=== PATIENT | male | born 1985 | race Caucasian/White ===

== ENCOUNTER 2017-01-02 17:42 | Emergency (ER) | payer OTHER ==
[~2017-01-02] VITALS: Ht 188 cm; Wt 112.0 kg
[~2017-01-02 17:42] MED LIST: AMOX875 PO; PRED20 PO
[2017-01-02 17:43] VITALS: BP 151/97; PULSE 86; RESP 15; TEMP 98.6; O2SAT 96
[2017-01-02] MEDS ORDERED: MAGICPED SWISH-SWAL (18:04)
--- NOTE | 2017-01-02 18:15 | PD ---
HPI Chief Complaint: Cold / Flu Symptoms Time Seen by Provider: 18:00 Travel History International Travel<30 days: No Contact w/Intl Traveler<30days: No Traveled to known affect area: No History of Present Illness HPI 31-year-old male presents to the emergency room for evaluation of nonproductive cough, slightly sore throat, and congestion for the past 3 days. Patient states his son and everyone else in his family is sick with similar symptoms. Sore throat is mild, worse when he is speaking. States it feels somewhat scratchy. He states he was concerned because of the duration of symptoms. He has been taking quzj-bsy-tyqwrnf DayQuil, NyQuil, and Sudafed. States he developed some most. He denies fever, chills, nausea, vomiting. PFSH Past Medical History Medical History: Denies Significant Hx Depression: Yes Diminished Hearing: No Seizures: Yes (HAD CHILD, NONE SINCE BEFORE PUBERTY) Tetanus Vaccination: < 5 Years Influenza Vaccination: No ?: Not Past Surgical History Surgical History: No Previous Surgery Social History Alcohol Use: No Tobacco Use: Yes (/2 PPD) Substance Use: No Allergies-Medications (Allergen,Severity, Reaction): Coded Allergies: No Known Allergies (Verified , 01/02/17) Reported Meds & Prescriptions Reported Meds & Active Scripts Active Magic Mouthwash Pediatric/Adult Liq (Lidocaine/Diphenhydr/Alum/Mg/Simeth) 60 Ml Susp 5 Ml SWISH-SWAL ACHS Each 5mL contains: Diphenydramine 4.5mg, Viscous Lidocaine 2% 10mg, Maalox Advanced Regular Strength 2.7ml Amoxicillin 875 Mg Tab 875 Mg PO BID Deltasone (Prednisone) 20 Mg Tab 20 Mg PO BID Review of Systems Except as stated in HPI: all other systems reviewed are Neg Physical Exam Narrative GENERAL: Well-nourished, well-developed male in no acute distress. Afebrile. Ambulatory. SKIN: Focused skin assessment warm/dry. HEAD: Normocephalic. EYES: No scleral icterus. No injection or drainage. ENT: Mucosa pink and moist. Moderate erythema without edema or exudates. No uvular edema. No uvular, palatal, or tonsillar deviation. Airway patent. Nasal turbinates appear normal without nasal blood, purulent drainage or septal hematoma. EARS: Bilateral pinnae and external canals appear within normal limits. Bilateral tympanic membranes without erythema, dullness or perforation. NECK: Supple, trachea midline. No JVD or lymphadenopathy. CARDIOVASCULAR: Regular rate and rhythm without murmurs, gallops, or rubs. RESPIRATORY: Breath sounds equal bilaterally. No accessory muscle use. No crackles, rales, wheezes, or rhonchi. Data Data Last Documented VS Vital Signs Date Time Temp Pulse Resp B/P Pulse Ox O2 Delivery O2 Flow Rate FiO2 01/02/17 17:43 98.6 86 15 151/97 96 MDM Medical Decision Making Medical Screen Exam Complete: Yes Emergency Medical Condition: Yes Medical Record Reviewed: Yes Differential Diagnosis URI versus streptococcal pharyngitis versus viral pharyngitis versus bronchitis Narrative Course 31-year-old male presents to the emergency room for evaluation of cough, congestion, sore throat for the past 3 days. Family has similar symptoms. He was concerned because of the duration of symptoms. Physical exam reveals mild to moderate erythema of the pharynx without edema or exudates. Bilateral ears are without evidence of infection. Lung sounds clear and equal. This is likely viral upper respiratory infection; I see no indication for antibiotics. Patient was told to continue ujqi-fvp-fzzzphc medications for symptoms. He was given Magic mouthwash for sore throat. Told to follow up with the primary care physician or return to the emergency room forcing symptoms. He understands and agrees to plan. Diagnosis Primary Impression: Upper respiratory infection Qualified Code: J00 - Acute nasopharyngitis Referrals: Primary Care Physician Patient Instructions: General Instructions, Upper Respiratory Infection (ED) Additional Instructions: Rest and drink plenty of fluids. Use Magic mouthwash as directed, as needed for sore throat. Take ibuprofen with food as directed, as needed for pain. Follow-up with a primary care physician. Return to the emergency room for worsening symptoms. Scripts Lwdeaioaojuhygd-Rxmhohgxs-Qfr-Alum-Simeth Liq (Magic Mouthwash Pediatric/Adult Liq)60 Ml Susp5 Ml SWISH-SWAL ACHS #60 ML Ref 0 Each 5mL contains: Diphenydramine 4.5mg, Viscous Lidocaine 2% 10mg, Maalox Advanced Regular Strength 2.7ml Prov:Jordan Main MD 01/02/17 Disposition: 01 DISCHARGE HOME Condition: Stable Evelina Wilkinson January 02, 2017 18:15
[2017-01-02 18:25] VITALS: BP 150/86; PULSE 88; RESP 20; O2SAT 96
== END 2017-01-02 18:40 | disposition home or self-care (01) ==
LOC: PHEFT 17:42
DX: J06.9 Acute upper respiratory infection, unspecified (principal); F32.9 Major depressive disorder, single episode, unspecified; F17.200 Nicotine dependence, unspecified, uncomplicated
CPT/HCPCS: 99283

== ENCOUNTER 2017-03-22 11:37 | Emergency (ER) | payer OTHER ==
[~2017-03-22 11:37] MED LIST changes: +MAGICPED SWISH-SWAL
[2017-03-22 11:41] VITALS: BP 166/81; PULSE 92; RESP 18; TEMP 98.3; O2SAT 95
[2017-03-22] MEDS ORDERED: VARE1 PO (11:43)
[2017-03-22] MEDS ORDERED: ORPH100T99 PO (11:56)
[2017-03-22] MEDS ORDERED: IBUP-232 PO (11:56)
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
[2017-03-22] MEDS ORDERED: IBUPROFEN 200 MG TAB PO ONE (12:00)
== END 2017-03-22 12:17 | disposition home or self-care (01) ==
LOC: PHED 11:37
DX: S16.1XXA Strain of muscle, fascia and tendon at neck level, initial encounter (principal); M25.512 Pain in left shoulder; F17.200 Nicotine dependence, unspecified, uncomplicated; Z86.59 Personal history of other mental and behavioral disorders; V89.2XXA Person injured in unspecified motor-vehicle accident, traffic, initial encounter
CPT/HCPCS: 99283

== ENCOUNTER 2017-04-30 16:02 | Emergency (ER) | payer SELFPAY ==
[~2017-04-30] VITALS: Ht 188 cm; Wt 114.0 kg
[~2017-04-30 16:02] MED LIST changes: -AMOX875 PO; +IBUP-232 PO; -MAGICPED SWISH-SWAL; +ORPH100T99 PO; -PRED20 PO; +VARE1 PO
[2017-04-30 16:03] VITALS: BP 162/98; PULSE 85; RESP 20; TEMP 97.9; O2SAT 98
[2017-04-30] MEDS ORDERED: IBUP800T23 PO (16:18)
[2017-04-30] MEDS ORDERED: AMOX500C PO (16:18)
--- NOTE | 2017-04-30 16:19 | PD ---
HPI Chief Complaint: ENT Complaint Time Seen by Provider: 16:17 Travel History International Travel<30 days: No Contact w/Intl Traveler<30days: No Traveled to known affect area: No History of Present Illness HPI 31-year-old male presents emergency Department with complaint of nasal congestion and left ear pain 3 days. Says he thinks he has an ear infection. Denies sore throat, cough, fever, vomiting. Has been taking qfzs-kmk-wjfxhul medications for symptom management. Says son was sick with similar symptoms. Symptoms are mild in severity. No known allergies. Has no other medical complaints. No other modifying factors or associated signs and symptoms. PFSH Past Medical History Depression: Yes Diminished Hearing: No Seizures: Yes (HAD CHILD, NONE SINCE BEFORE PUBERTY) Social History Alcohol Use: No Tobacco Use: Yes (/2 PPD) Substance Use: No Allergies-Medications (Allergen,Severity, Reaction): Coded Allergies: No Known Allergies (Verified , 04/30/17) Reported Meds & Prescriptions Reported Meds & Active Scripts Active Ibuprofen 800 Mg Tab 800 Mg PO Q6HR PRN Amoxicillin 500 Mg Cap 500 Mg PO BID 10 Days Reported Chantix (Varenicline) 1 Mg Tab 1 Mg PO BIDPC Review of Systems Except as stated in HPI: all other systems reviewed are Neg Physical Exam Narrative GENERAL: Well-nourished, well-developed male patient, in no acute distress; afebrile, nontoxic-appearing SKIN: Warm and dry. No rash. HEAD: Atraumatic. Normocephalic. EYES: Pupils equal and round. No scleral icterus. No injection or drainage. EARS: Bilateral pinnae and external canals appear within normal limits. Left tympanic membrane with erythema, loss of landmarks, and with dullness; without perforation. ENT: Mucosa pink and moist. Oral Pharynx without erythema; without edema or exudates. No uvular edema. No uvular, palatal, or tonsillar deviation. Airway patent. NECK: Trachea midline. No lymphadenopathy. CARDIOVASCULAR: Regular rate. RESPIRATORY: No accessory muscle use. GASTROINTESTINAL: Rounded. MUSCULOSKELETAL: No obvious deformities. No clubbing. No cyanosis. No edema. NEUROLOGICAL: Awake and alert. Oriented 3. No obvious cranial nerve deficits. Motor grossly within normal limits. Normal speech. Moves all extremities. 5/5 strength to all extremities. PSYCHIATRIC: Appropriate mood and affect; insight and judgment normal. Data Data Last Documented VS Vital Signs Date Time Temp Pulse Resp B/P (MAP) Pulse Ox O2 Delivery O2 Flow Rate FiO2 04/30/17 16:29 04/30/17 16:03 97.9 85 20 98 Room Air MDM Medical Decision Making Medical Screen Exam Complete: Yes Emergency Medical Condition: Yes Medical Record Reviewed: Yes Differential Diagnosis Otitis media, otitis externa, foreign body, cerumen impaction, viral illness, upper respiratory infection Narrative Course 31-year-old male physical exam consistent with left otitis media. Patient is afebrile and nontoxic-appearing. Denies fever, vomiting. Amoxicillin and ibuprofen prescribed for home. Instructed patient to follow up with primary care provider. Patient verbalizes understanding and agreement with treatment plan. Patient is medically cleared and stable for discharge. Discussed reasons to return to the emergency department. Patient agrees with treatment plan. The patients vital signs are stable and the patient is stable for outpatient follow-up and treatment. Patient discharged home, stable and in no acute distress. Diagnosis Primary Impression: Left otitis media Qualified Codes: H66.92 - Otitis media, unspecified, left ear Referrals: Primary Care Physician Patient Instructions: General Instructions, Serous Otitis Media (ED) Departure Forms: Tests/Procedures, Work Release Enter return to work date: May 01, 2017 Additional Instructions: Take antibiotics as prescribed and complete full course Ibuprofen or Tylenol as directed and as needed to reduce pain and fever Lexo-eyp-vcgsmtj antihistamines or decongestants as directed and as needed for symptom management Avoid getting water in the ears Do not put anything in the ears; including Q-tips Follow-up with primary care provider Return to the emergency department immediately with worsening of symptoms Med/Other Pt SpecificInfo: Prescription(s) given Scripts Ibuprofen (Ibuprofen) 800 Mg Tab 800 MG PO Q6HR Y for PAIN, #20 TAB 0 Refills Prov: Debi Zepeda 04/30/17 Amoxicillin (Amoxicillin) 500 Mg Cap 500 MG PO BID for Infection for 10 Days, CAP 0 Refills Prov: Debi Zepeda 04/30/17 Disposition: 01 DISCHARGE HOME Condition: Stable Debi Zepeda Apr 30, 2017 16:18
== END 2017-04-30 16:40 | disposition home or self-care (01) ==
LOC: NEPK 16:02
DX: H66.92 Otitis media, unspecified, left ear (principal); R09.81 Nasal congestion; F32.9 Major depressive disorder, single episode, unspecified; F17.200 Nicotine dependence, unspecified, uncomplicated
CPT/HCPCS: 99283